=== PATIENT | female | born 1955 | race Caucasian/White ===

== ENCOUNTER 2023-06-19 17:43 | Observation (INO) | payer OTHER ==
--- OUTSIDE RECORDS SUMMARY | 2023-06-19 17:46 | XMS REPORT | Continuity of Care Document ---
Author Name Unknown Address [address] [facility] [place] [address] [facility] thconnect Address [address] [facility] [place] [address] Care Team Providers Care Director Of [employer] Name Role Phone Sandra Lind Attending Clinician Unavailable Problems Condition Name Condition Details Condition Category Status Onset Date Resolution Date Last Treatment Date Treating Clinician Comments Source [id number] Mixed hyperlipid emia Problem [facility] [id number] Essential (primary) hypertensi on Problem [facility] [id number] LBBB (left bundle branch block) Problem [facility] Long-term current use of antithromb otic senior care (current) use of antithromb otics/anti platelets Problem [facility] [id number] Urinary incontinen ce in female Problem Common [facility] Chronic systolic heart failure Systolic CHF, chronic Problem [facility] [id number] Type 2 diabetes mellitus with hyperglyce joyce Problem [facility] Allergic rhinitis Non-season al allergic rhinitis, unspecifie d trigger Problem [facility] [id number] Chronic GERD Problem [facility] [id number] Coronary angioplast y status Problem [facility] 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 Problem [facility] Hypertensi ve heart failure Hypertensi ve heart disease with heart failure Problem [facility] [id number] 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 Ordering Clinician Indication Dosage Frequency Signature (SIG) Comments Components Source Famotidine 40 MG Famotidine 40 MG No 1{table t_at_be dtime} QD Famotidine 40 MG Metoprolol Succinate ER 25 MG Metoprolol Succinate ER 25 MG No 1{table t} QD Metoprolol Succinate ER 25 MG oxyBUTYnin Chloride ER 15 MG oxyBUTYnin Chloride ER 15 MG No 1{table t} QD oxyBUTYnin Chloride ER 15 MG Toujeo SoloStar 300 UNIT/ML Toujeo SoloStar 300 UNIT/ML No QD Toujeo SoloStar 300 UNIT/ML Repatha SureClick 140 MG/ML Repatha SureClick 140 MG/ML No Repatha SureClick 140 MG/ML Losartan Potassium 50 MG Losartan Potassium 50 MG No 1{table t} QD Losartan Potassium 50 MG Vitamin D3 Vitamin D3 No Vitamin D3 Womens Multivitami n - Womens Multivitami n - No Womens Multivitam in - Ezetimibe 10 MG Ezetimibe 10 MG No 1{table t} QD Ezetimibe 10 MG Promethazin e HCl 25 MG Promethazin e HCl 25 MG No 1{table t_as_ne eded} BID Promethazi ne HCl 25 MG Fluticasone Propionate 50 MCG/ACT Fluticasone Propionate 50 MCG/ACT No 1{spray _in_eac h_nostr il} QD Fluticason e Propionate 50 MCG/ACT Vitamin C Vitamin C No Vitamin C Ozempic (2 MG/DOSE) 8 MG/3ML Ozempic (2 MG/DOSE) 8 MG/3ML No Ozempic (2 MG/DOSE) 8 MG/3ML Sambucus Elderberry Immune - Sambucus Elderberry Immune - No Sambucus Elderberry Immune - Nitroglycer in 0.4 MG Nitroglycer in 0.4 MG No Nitroglyce rin 0.4 MG Clopidogrel Bisulfate 75 MG Clopidogrel Bisulfate 75 MG No 1{table t} QD Clopidogre l Bisulfate 75 MG Atorvastati n Calcium 80 MG Atorvastati n Calcium 80 MG No 1{table t} QD Atorvastat in Calcium 80 MG Almebex Plus B-12 Almebex Plus B-12 No Almebex Plus B-12 Aspirin 81 MG Aspirin 81 MG No 1{table t} QD Aspirin 81 MG Toujeo SoloStar 300 UNIT/ML Toujeo SoloStar 300 UNIT/ML No Toujeo SoloStar 300 UNIT/ML Famotidine 40 MG Famotidine 40 MG No 1{table t_at_be dtime} QD Famotidine 40 MG Metoprolol Succinate ER 25 MG Metoprolol Succinate ER 25 MG No 1{table t} QD Metoprolol Succinate ER 25 MG oxyBUTYnin Chloride ER 15 MG oxyBUTYnin Chloride ER 15 MG No 1{table t} QD oxyBUTYnin Chloride ER 15 MG Toujeo SoloStar 300 UNIT/ML Toujeo SoloStar 300 UNIT/ML No QD Toujeo SoloStar 300 UNIT/ML Repatha SureClick 140 MG/ML Repatha SureClick 140 MG/ML No Repatha SureClick 140 MG/ML Losartan Potassium 50 MG Losartan Potassium 50 MG No 1{table t} QD Losartan Potassium 50 MG Vitamin D3 Vitamin D3 No Vitamin D3 Womens Multivitami n - Womens Multivitami n - No Womens Multivitam in - Ezetimibe 10 MG Ezetimibe 10 MG No 1{table t} QD Ezetimibe 10 MG Promethazin e HCl 25 MG Promethazin e HCl 25 MG No 1{table t_as_ne eded} BID Promethazi ne HCl 25 MG Fluticasone Propionate 50 MCG/ACT Fluticasone Propionate 50 MCG/ACT No 1{spray _in_eac h_nostr il} QD Fluticason e Propionate 50 MCG/ACT Vitamin C Vitamin C No Vitamin C Ozempic (2 MG/DOSE) 8 MG/3ML Ozempic (2 MG/DOSE) 8 MG/3ML No Ozempic (2 MG/DOSE) 8 MG/3ML Sambucus Elderberry Immune - Sambucus Elderberry Immune - No Sambucus Elderberry Immune - Nitroglycer in 0.4 MG Nitroglycer in 0.4 MG No Nitroglyce rin 0.4 MG Clopidogrel Bisulfate 75 MG Clopidogrel Bisulfate 75 MG No 1{table t} QD Clopidogre l Bisulfate 75 MG Atorvastati n Calcium 80 MG Atorvastati n Calcium 80 MG No 1{table t} QD Atorvastat in Calcium 80 MG Almebex Plus B-12 Almebex Plus B-12 No Almebex Plus B-12 Aspirin 81 MG Aspirin 81 MG No 1{table t} QD Aspirin 81 MG Toujeo SoloStar 300 UNIT/ML Toujeo SoloStar 300 UNIT/ML No Toujeo SoloStar 300 UNIT/ML Famotidine 40 MG Famotidine 40 MG No 1{table t_at_be dtime} QD Famotidine 40 MG Metoprolol Succinate ER 25 MG Metoprolol Succinate ER 25 MG No 1{table t} QD Metoprolol Succinate ER 25 MG oxyBUTYnin Chloride ER 15 MG oxyBUTYnin Chloride ER 15 MG No 1{table t} QD oxyBUTYnin Chloride ER 15 MG Toujeo SoloStar 300 UNIT/ML Toujeo SoloStar 300 UNIT/ML No QD Toujeo SoloStar 300 UNIT/ML Repatha SureClick 140 MG/ML Repatha SureClick 140 MG/ML No Repatha SureClick 140 MG/ML Losartan Potassium 50 MG Losartan Potassium 50 MG No 1{table t} QD Losartan Potassium 50 MG Vitamin D3 Vitamin D3 No Vitamin D3 Womens Multivitami n - Womens Multivitami n - No Womens Multivitam in - Sambucus Elderberry Immune - Sambucus Elderberry Immune - No Sambucus Elderberry Immune - Metoprolol Succinate ER 25 MG Metoprolol Succinate ER 25 MG No 1{table t} QD Metoprolol Succinate ER 25 MG Womens Multivitami n - Womens Multivitami n - No Womens Multivitam in - Losartan Potassium 50 MG Losartan Potassium 50 MG No 1{table t} QD Losartan Potassium 50 MG Ezetimibe 10 MG Ezetimibe 10 MG No 1{table t} QD Ezetimibe 10 MG Famotidine 40 MG Famotidine 40 MG No 1{table t_at_be dtime} QD Famotidine 40 MG Promethazin e HCl 25 MG Promethazin e HCl 25 MG No 1{table t_as_ne eded} BID Promethazi ne HCl 25 MG Fluticasone Propionate 50 MCG/ACT Fluticasone Propionate 50 MCG/ACT No 1{spray _in_eac h_nostr il} QD Fluticason e Propionate 50 MCG/ACT Nitroglycer in 0.4 MG Nitroglycer in 0.4 MG No Nitroglyce rin 0.4 MG Atorvastati n Calcium 80 MG Atorvastati n Calcium 80 MG No 1{table t} QD Atorvastat in Calcium 80 MG Clopidogrel Bisulfate 75 MG Clopidogrel Bisulfate 75 MG No 1{table t} QD Clopidogre l Bisulfate 75 MG Vitamin D3 Vitamin D3 No Vitamin D3 Toujeo SoloStar 300 UNIT/ML Toujeo SoloStar 300 UNIT/ML No Toujeo SoloStar 300 UNIT/ML Toujeo SoloStar 300 UNIT/ML Toujeo SoloStar 300 UNIT/ML No QD Toujeo SoloStar 300 UNIT/ML Aspirin 81 MG Aspirin 81 MG No 1{table t} QD Aspirin 81 MG Vitamin C Vitamin C No Vitamin C Repatha SureClick 140 MG/ML Repatha SureClick 140 MG/ML No Repatha SureClick 140 MG/ML Ozempic (2 MG/DOSE) 8 MG/3ML Ozempic (2 MG/DOSE) 8 MG/3ML No Ozempic (2 MG/DOSE) 8 MG/3ML oxyBUTYnin Chloride ER 15 MG oxyBUTYnin Chloride ER 15 MG No 1{table t} QD oxyBUTYnin Chloride ER 15 MG Almebex Plus B-12 Almebex Plus B-12 No Almebex Plus B-12 Ezetimibe 10 MG Ezetimibe 10 MG No 1{table t} QD Ezetimibe 10 MG Promethazin e HCl 25 MG Promethazin e HCl 25 MG No 1{table t_as_ne eded} BID Promethazi ne HCl 25 MG Fluticasone Propionate 50 MCG/ACT Fluticasone Propionate 50 MCG/ACT No 1{spray _in_eac h_nostr il} QD Fluticason e Propionate 50 MCG/ACT Vitamin C Vitamin C No Vitamin C Ozempic (2 MG/DOSE) 8 MG/3ML Ozempic (2 MG/DOSE) 8 MG/3ML No Ozempic (2 MG/DOSE) 8 MG/3ML Sambucus Elderberry Immune - Sambucus Elderberry Immune - No Sambucus Elderberry Immune - Nitroglycer in 0.4 MG Nitroglycer in 0.4 MG No Nitroglyce rin 0.4 MG Clopidogrel Bisulfate 75 MG Clopidogrel Bisulfate 75 MG No 1{table t} QD Clopidogre l Bisulfate 75 MG Atorvastati n Calcium 80 MG Atorvastati n Calcium 80 MG No 1{table t} QD Atorvastat in Calcium 80 MG Almebex Plus B-12 Almebex Plus B-12 No Almebex Plus B-12 Aspirin 81 MG Aspirin 81 MG No 1{table t} QD Aspirin 81 MG Toujeo SoloStar 300 UNIT/ML Toujeo SoloStar 300 UNIT/ML No Toujeo SoloStar 300 UNIT/ML Immunizations Ordered Immunization Name Filled Immunization Name Date Status Comments Source FLUZONE HIGH DOSE OVER 65 FLUZONE HIGH DOSE OVER 65 Unknown Completed [facility] TDAP TDAP Unknown Completed [facility] FLUZONE HIGH DOSE OVER 65 FLUZONE HIGH DOSE OVER 65 Unknown Completed [facility] TDAP TDAP Unknown Completed [facility] FLUZONE HIGH DOSE OVER 65 FLUZONE HIGH DOSE OVER 65 Unknown Completed [facility] TDAP TDAP Unknown Completed [facility] FLUZONE HIGH DOSE OVER 65 FLUZONE HIGH DOSE OVER 65 Unknown Completed [facility] TDAP TDAP Unknown Completed [facility] Vital Signs Vital Name Observation Time Observation Value Comments S germaince height 2023-02-05 10:20:00 62.5 [in_i] Comm on [facility] weight 2023-02-05 10:20:00 155 [lb_av] Comm on [facility] temperature 2023-02-05 10:20:00 97 [degF] Comm on [facility] bmi 2023-02-05 10:20:00 27.9 kg/m2 Commo n [facility] height 2022-12-19 11:00:00 62.5 [in_i] Comm on [facility] weight 2022-12-19 11:00:00 167.5 [lb_av] Co mmon [facility] temperature 2022-12-19 11:00:00 97.3 [degF] Com mon [facility] bmi 2022-12-19 11:00:00 30.14 kg/m2 Comm on [facility] oximetry 2022-12-19 11:00:00 99 % Commo n [facility] respiratory rate 2022-12-19 11:00:00 16 /min [facility] blood pressure systolic 2022-12-19 11:00:00 122 mm[Hg] [facility] blood pressure diastolic 2022-12-19 11:00:00 68 mm[Hg] [facility] Encounters Start Date/Time End Date/Time Encounter Type Admission Type Attending Clinicians Care Facility Care Department Encounter ID Source 2023-05-07 08:26:00 Outpatient Sandra Lind [facility] [id number] [facility] 2022-12-19 10:22:01 Outpatient LindSandra [facility] [id number] [facility] 2023-02-22 00:00:00 2023-02-22 00:00:00 (TEL) [facility] [id number] [facility] 2023-02-05 00:00:00 2023-02-05 00:00:00 OFFICE VISIT ESTAB PT LEVEL 4 [facility] [id number] [facility] 2023-01-03 00:00:00 2023-01-03 00:00:00 (TEL) [facility]C [facility] [id number] [facility] 2022-12-19 00:00:00 2022-12-19 00:00:00 OFFICE VISIT NEW PT LEVEL 4 [facility] [id number] [facility] Results Test Description Test Time Test Comments Results Result Co mments Source HEMOGLOBIN [id number] 00:00:00* Test Item Value Reference Range Interpretation Comme nts HEMOGLOBIN A1c (test code = 4548-4) 5.8 % See_Comment H [Automated messa ge] The system which generated this result transmitted reference range: 4.2-5.6 %. The reference range was not used to interpret this result as normal/abnormal. LIPID PANEL WITH REFLEX DIRECT [id number] 00:00:00* Test Item Value Reference Range Interpretation Comme nts CALC LDL CHOL (test code = 29125-2) 31 MG/DL See_Comment [Automated IQcarda ge] The system which generated this result transmitted reference range: <100 MG/DL. The reference range was not used to interpret this result as normal/abnormal. CHOLESTEROL (test code = 2093-3) 98 MG/DL See_Comment [Automated IQcarda ge] The system which generated this result transmitted reference range: <200 MG/DL. The reference range was not used to interpret this result as normal/abnormal. HDL CHOLESTEROL (test code = 2085-9) 51 MG/DL See_Comment [Automated IQcarda ge] The system which generated this result transmitted reference range: >39 MG/DL. The reference range was not used to interpret this result as normal/abnormal. RISK RATIO LDL/HDL (test code = 15714-2) 0.61 RATIO See_Comment [Automated message] The system which generated this result transmitted reference range: <3.22 RATIO. The reference range was not used to interpret this result as normal/abnormal. TRIGLYCERIDES (test code = 2571-8) 79 MG/DL See_Comment [Automated IQcarda ge] The system which generated this result transmitted reference range: <150 MG/DL. The reference range was not used to interpret this result as normal/abnormal. ALBUMIN/CREATININE RATIO, RANDOM [id number] 00:00:00* Test Item Value Reference Range Interpretation Comme nts ALBUMIN, URINE, RANDOM (test code = 49426-9) 1.3 MG/DL NOT ESTAB MG/DL CALC ALBUMIN/CREAT, RND (test code = 76535-6) 10 MG/G See_Comment [Automated messa ge] The system which generated this result transmitted reference range: <30 MG/G. The reference range was not used to interpret this result as normal/abnormal. CREATININE, URINE, CONC. (test code = 2161-8) 131.1 MG/DL NOT ESTAB MG/DL COMPREHENSIVE METABOLIC [id number] 00:00:00* Test Item Value Reference Range Interpretation Comme nts ALBUMIN (test code = 1751-7) 4.4 G/DL See_Comment [Automated messa ge] The system which generated this result transmitted reference range: 3.5-5.2 G/DL. The reference range was not used to interpret this result as normal/abnormal. ALKALINE PHOSPHATASE (test code = 6768-6) 93 U/L See_Comment [Automated message] The system which generated this result transmitted reference range: 40-142 U/L. The reference range was not used to interpret this result as normal/abnormal. BILIRUBIN, TOTAL (test code = 1975-2) 0.9 MG/DL See_Comment [Automated message] The system which generated this result transmitted reference range: <=1.2 MG/DL. The reference range was not used to interpret this result as normal/abnormal. BUN (test code = 3094-0) 19 MG/DL See_Comment [Automated messa ge] The system which generated this result transmitted reference range: 8-23 MG/DL. The reference range was not used to interpret this result as normal/abnormal. CALCIUM (test code = 22489-6) 9.6 MG/DL See_Comment [Automated messa ge] The system which generated this result transmitted reference range: 8.5-10.5 MG/DL. The reference range was not used to interpret this result as normal/abnormal. CALC A/G RATIO (test code = 1759-0) 1.6 RATIO See_Comment [Automated messa ge] The system which generated this result transmitted reference range: 1.0-2.6 RATIO. The reference range was not used to interpret this result as normal/abnormal. CALC BUN/CREAT (test code = 3097-3) 29 RATIO See_Comment H [Automated messa ge] The system which generated this result transmitted reference range: 6-28 RATIO. The reference range was not used to interpret this result as normal/abnormal. CALC GLOBULIN (test code = 71021-0) 2.7 G/DL See_Comment [Automated messa ge] The system which generated this result transmitted reference range: 1.9-3.7 G/DL. The reference range was not used to interpret this result as normal/abnormal. CARBON DIOXIDE (test code = 1963-8) 23 MEQ/L See_Comment [Automated messa ge] The system which generated this result transmitted reference range: 19-31 MEQ/L. The reference range was not used to interpret this result as normal/abnormal. CHLORIDE (test code = 2075-0) 105 MEQ/L See_Comment [Automated messa ge] The system which generated this result transmitted reference range: 95-107 MEQ/L. The reference range was not used to interpret this result as normal/abnormal. CREATININE (test code = 2160-0) 0.65 MG/DL See_Comment [Automated messa ge] The system which generated this result transmitted reference range: 0.60-1.30 MG/DL. The reference range was not used to interpret this result as normal/abnormal. eGFR (2020 CKD-EPI) (test code = 40458-5) 95 ML/MIN/1.73 See_Comment [Automated messa ge] The system which generated this result transmitted reference range: >60 ML/MIN/1.73. The reference range was not used to interpret this result as normal/abnormal. GLUCOSE (test code = 1558-6) 100 MG/DL See_Comment H [Automated messa ge] The system which generated this result transmitted reference range: 70-99 MG/DL. The reference range was not used to interpret this result as normal/abnormal. POTASSIUM (test code = 2823-3) 4.3 MEQ/L See_Comment [Automated messa ge] The system which generated this result transmitted reference range: 3.5-5.4 MEQ/L. The reference range was not used to interpret this result as normal/abnormal. PROTEIN, TOTAL (test code = 2885-2) 7.1 G/DL See_Comment [Automated messa ge] The system which generated this result transmitted reference range: 6.1-8.3 G/DL. The reference range was not used to interpret this result as normal/abnormal. AST (test code = 1920-8) 27 U/L See_Comment [Automated messa ge] The system which generated this result transmitted reference range: 9-40 U/L. The reference range was not used to interpret this result as normal/abnormal. ALT (test code = 1742-6) 25 U/L See_Comment [Automated messa ge] The system which generated this result transmitted reference range: 5-40 U/L. The reference range was not used to interpret this result as normal/abnormal. SODIUM (test code = 2951-2) 140 MEQ/L See_Comment [Automated messa ge] The system which generated this result transmitted reference range: 133-146 MEQ/L. The reference range was not used to interpret this result as normal/abnormal. CBC W/AUTO [id number] 00:00:00* Test Item Value Reference Range Interpretation Comme nts NUCLEATED RBCS (test code = 38479-1) 0.0 /100 WBC'S See_Comment [Automated messa ge] The system which generated this result transmitted reference range: 0.0 /100 WBC'S. The reference range was not used to interpret this result as normal/abnormal. ABSOLUTE EOSINOPHILS (test code = 80938-4) 0.25 K/UL See_Comment [Automated messa ge] The system which generated this result transmitted reference range: 0.00-0.50 K/UL. The reference range was not used to interpret this result as normal/abnormal. ABSOLUTE LYMPHOCYTES (test code = 26001-8) 1.35 K/UL See_Comment [Automated messa ge] The system which generated this result transmitted reference range: 1.00-4.00 K/UL. The reference range was not used to interpret this result as normal/abnormal. ABSOLUTE MONOCYTES (test code = 42699-3) 0.49 K/UL See_Comment [Automated messa ge] The system which generated this result transmitted reference range: 0.20-1.00 K/UL. The reference range was not used to interpret this result as normal/abnormal. ABSOLUTE NEUTROPHILS (test code = 91781-5) 5.94 K/UL See_Comment [Automated messa ge] The system which generated this result transmitted reference range: 1.50-7.50 K/UL. The reference range was not used to interpret this result as normal/abnormal. BASOPHILS (test code = 25925-7) 0.9 % EOSINOPHILS (test code = 69005-2) 3.1 % HEMATOCRIT (test code = 32797-4) 38.2 % See_Comment [Automated messa ge] The system which generated this result transmitted reference range: 34.0-45.0 %. The reference range was not used to interpret this result as normal/abnormal. HEMOGLOBIN (test code = 718-7) 13.1 G/DL See_Comment [Automated messa ge] The system which generated this result transmitted reference range: 11.5-15.5 G/DL. The reference range was not used to interpret this result as normal/abnormal. LYMPHOCYTES (test code = 85299-3) 16.6 % MCH (test code = 88785-1) 31.6 PG See_Comment [Automated messa ge] The system which generated this result transmitted reference range: 25.0-33.0 PG. The reference range was not used to interpret this result as normal/abnormal. MCHC (test code = 97303-6) 34.3 G/DL See_Comment [Automated messa ge] The system which generated this result transmitted reference range: 31.0-36.0 G/DL. The reference range was not used to interpret this result as normal/abnormal. MCV (test code = 48700-5) 92.0 fL See_Comment [Automated messa ge] The system which generated this result transmitted reference range: 80.0-99.0 fL. The reference range was not used to interpret this result as normal/abnormal. MONOCYTES (test code = 56103-1) 6.0 % NEUTROPHILS (test code = 15052-8) 73.3 % PLATELET COUNT (test code = 93053-3) 295 K/UL See_Comment [Automated messa ge] The system which generated this result transmitted reference range: 130-400 K/UL. The reference range was not used to interpret this result as normal/abnormal. RBC (test code = 39191-3) 4.15 M/UL See_Comment [Automated messa ge] The system which generated this result transmitted reference range: 3.80-5.40 M/UL. The reference range was not used to interpret this result as normal/abnormal. RDW (test code = 12039-3) 11.9 % See_Comment [Automated messa ge] The system which generated this result transmitted reference range: 11.5-15.0 %. The reference range was not used to interpret this result as normal/abnormal. WBC (test code = 32356-3) 8.1 K/UL See_Comment [Automated messa ge] The system which generated this result transmitted reference range: 3.5-11.0 K/UL. The reference range was not used to interpret this result as normal/abnormal. HEMOGLOBIN [id number] 00:00:00* Test Item Value Reference Range [facility]ation [facility] A1c (test code = 4548-4) 5.8 % See_Comment H [Automated IQcarda ge] The system which generated this result transmitted reference range: 4.2-5.6 %. The reference range was not used to interpret this result as normal/abnormal. TSH REFLEX TO FREE [id number] 00:00:00* Test Item Value Reference Range Interpretation [facility] TSH REFLEX TO FREE T4 (test code = 81914-8) 1.820 UIU/ML See_Comment [Automated IQcarda ge] The system which generated this result transmitted reference range: 0.400-4.100 UIU/ML. The reference range was not used to interpret this result as normal/abnormal. LIPID PANEL WITH REFLEX DIRECT [id number] 00:00:00* Test Item Value Reference Range Interpretation [facility] CALC LDL CHOL (test code = 94444-4) 34 MG/DL See_Comment [Automated IQcarda ge] The system which generated this result transmitted reference range: <100 MG/DL. The reference range was not used to interpret this result as normal/abnormal. CHOLESTEROL (test code = 2093-3) 95 MG/DL See_Comment [Automated IQcarda ge] The system which generated this result transmitted reference range: <200 MG/DL. The reference range was not used to interpret this result as normal/abnormal. HDL CHOLESTEROL (test code = 2085-9) 46 MG/DL See_Comment [Automated IQcarda ge] The system which generated this result transmitted reference range: >39 MG/DL. The reference range was not used to interpret this result as normal/abnormal. RISK RATIO LDL/HDL (test code = 25324-4) 0.74 RATIO See_Comment [Automated message] The system which generated this result transmitted reference range: <3.22 RATIO. The reference range was not used to interpret this result as normal/abnormal. TRIGLYCERIDES (test code = 2571-8) 74 MG/DL See_Comment [Automated messa ge] The system which generated this result transmitted reference range: <150 MG/DL. The reference range was not used to interpret this result as normal/abnormal. ALBUMIN/CREATININE RATIO, RANDOM [id number] 00:00:00* Test Item Value Reference Range Interpretation Comme nts ALBUMIN, URINE, RANDOM (test code = 35451-5) 1.1 MG/DL NOT ESTAB MG/DL CALC ALBUMIN/CREAT, RND (test code = 42067-0) 10 MG/G See_Comment [Automated messa ge] The system which generated this result transmitted reference range: <30 MG/G. The reference range was not used to interpret this result as normal/abnormal. CREATININE, URINE, CONC. (test code = 2161-8) 110.5 MG/DL NOT ESTAB MG/DL COMPREHENSIVE METABOLIC [id number] 00:00:00* Test Item Value Reference Range Interpretation Comme nts ALBUMIN (test code = 1751-7) 4.5 G/DL See_Comment [Automated messa ge] The system which generated this result transmitted reference range: 3.5-5.2 G/DL. The reference range was not used to interpret this result as normal/abnormal. ALKALINE PHOSPHATASE (test code = 6768-6) 102 U/L See_Comment [Automated message] The system which generated this result transmitted reference range: 40-142 U/L. The reference range was not used to interpret this result as normal/abnormal. BILIRUBIN, TOTAL (test code = 1975-2) 0.8 MG/DL See_Comment [Automated message] The system which generated this result transmitted reference range: <=1.2 MG/DL. The reference range was not used to interpret this result as normal/abnormal. BUN (test code = 3094-0) 21 MG/DL See_Comment [Automated messa ge] The system which generated this result transmitted reference range: 8-23 MG/DL. The reference range was not used to interpret this result as normal/abnormal. CALCIUM (test code = 75555-3) 9.6 MG/DL See_Comment [Automated messa ge] The system which generated this result transmitted reference range: 8.5-10.5 MG/DL. The reference range was not used to interpret this result as normal/abnormal. CALC A/G RATIO (test code = 1759-0) 1.7 RATIO See_Comment [Automated messa ge] The system which generated this result transmitted reference range: 1.0-2.6 RATIO. The reference range was not used to interpret this result as normal/abnormal. CALC BUN/CREAT (test code = 3097-3) 28 RATIO See_Comment [Automated messa ge] The system which generated this result transmitted reference range: 6-28 RATIO. The reference range was not used to interpret this result as normal/abnormal. CALC GLOBULIN (test code = 02620-0) 2.6 G/DL See_Comment [Automated messa ge] The system which generated this result transmitted reference range: 1.9-3.7 G/DL. The reference range was not used to interpret this result as normal/abnormal. CARBON DIOXIDE (test code = 1963-8) 20 MEQ/L See_Comment [Automated messa ge] The system which generated this result transmitted reference range: 19-31 MEQ/L. The reference range was not used to interpret this result as normal/abnormal. CHLORIDE (test code = 2075-0) 108 MEQ/L See_Comment H [Automated messa ge] The system which generated this result transmitted reference range: 95-107 MEQ/L. The reference range was not used to interpret this result as normal/abnormal. CREATININE (test code = 2160-0) 0.75 MG/DL See_Comment [Automated messa ge] The system which generated this result transmitted reference range: 0.60-1.30 MG/DL. The reference range was not used to interpret this result as normal/abnormal. eGFR (2020 CKD-EPI) (test code = 03991-0) 86 ML/MIN/1.73 See_Comment [Automated messa ge] The system which generated this result transmitted reference range: >60 ML/MIN/1.73. The reference range was not used to interpret this result as normal/abnormal. GLUCOSE (test code = 1558-6) 120 MG/DL See_Comment H [Automated messa ge] The system which generated this result transmitted reference range: 70-99 MG/DL. The reference range was not used to interpret this result as normal/abnormal. POTASSIUM (test code = 2823-3) 4.5 MEQ/L See_Comment [Automated messa ge] The system which generated this result transmitted reference range: 3.5-5.4 MEQ/L. The reference range was not used to interpret this result as normal/abnormal. PROTEIN, TOTAL (test code = 2885-2) 7.1 G/DL See_Comment [Automated messa ge] The system which generated this result transmitted reference range: 6.1-8.3 G/DL. The reference range was not used to interpret this result as normal/abnormal. AST (test code = 1920-8) 30 U/L See_Comment [Automated messa ge] The system which generated this result transmitted reference range: 9-40 U/L. The reference range was not used to interpret this result as normal/abnormal. ALT (test code = 1742-6) 30 U/L See_Comment [Automated messa ge] The system which generated this result transmitted reference range: 5-40 U/L. The reference range was not used to interpret this result as normal/abnormal. SODIUM (test code = 2951-2) 140 MEQ/L See_Comment [Automated messa ge] The system which generated this result transmitted reference range: 133-146 MEQ/L. The reference range was not used to interpret this result as normal/abnormal. DEXA, BONE DENSITY AXIAL SKELEDEXA, BONE DENSITY AXIAL SKELE
[2023-06-19 19:00] LABS: Specific Gravity 1.016 (1.005-1.030); Urine Bacteria <20 /HPF (<20); Urine Bilirubin NEGATIVE (Negative); Urine Blood Negative (Negative); Urine Clarity Extremely Turbid (Clear); Urine Color Light-Yellow (Yellow); Urine Crystals Unidentified Few /HPF (None Seen); Urine Glucose NEGATIVE (Negative); Urine Protein NEGATIVE (Negative); Urine RBC <5 /HPF (None Seen); Urine Urobilinogen Normal (Normal); Urine WBC Clump Occasional /HPF (None Seen); Urine pH 6.5 (5.0-7.0)
[2023-06-19] MEDS ORDERED: CEFTRIAXONE 1000 MG/VIAL ONE (19:09)
[2023-06-19 19:14] LABS: Absolute Lymphocytes (CBC) 2.5 K/uL (0.7-4.9); Hematocrit 41.4 % (36.0-45.0); Lymphocytes % 32.1 % (15.3-44.8); MCV 92.9 fL (80-100); MPV 7.4 fL (7.6-11.3); Platelets 268 thou/uL (152-406); RBC Red Blood Cell Count 4.46 M/uL (3.86-4.86)
[2023-06-19 19:29] LABS: Albumin 3.9 g/dL (3.4-5.0); Bilirubin Total 0.6 mg/dL (0.2-1.0); Potassium 4.2 mEq/L (3.5-5.1); Troponin High Sensitivity 8.8 pg/mL (<58.9)
--- NOTE | 2023-06-19 20:06 | RAD REPORT ---
EXAM DESCRIPTION: CT - Head Brain Wo Cont - 06/19/2023 7:55 pm CLINICAL HISTORY: DIZZINESS COMPARISON: Head angio dated 06/19/2023 TECHNIQUE: All CT scans are performed using dose optimization technique as appropriate and may inclu de automated exposure control or mA/KV adjustment according to patient size. FINDINGS: No intracranial hemorrhage, hydrocephalus or extra-axial fluid collection.No areas of brai n edema or evidence of midline shift. Partially empty sella, typically a normal variant. The paranasal sinuses and mastoids are clear. The calvarium is intact. IMPRESSION: No acute intracranial abnormality.
--- NOTE | 2023-06-19 20:10 | RAD REPORT ---
EXAM DESCRIPTION: CT - Neck Angio - 06/19/2023 7:57 pm CLINICAL HISTORY: dizzines COMPARISON: No comparisons TECHNIQUE: CT angiography of the neck vessels was performed with maximum intensity reformatted image s. CAROTID STENOSIS REFERENCE USING NASCET CRITERIA: Mild - <50% stenosis. Moderate - 50-69% stenosis. Severe - 70-94% stenosis. Near occlusion - 95-99% stenosis. Occluded - 100% stenosis. All CT scans are performed using dose optimization technique as appropriate and may include automated exposure control or mA/KV adjustment according to patient size. FINDINGS: A left aortic arch is identified with normal three vessel configuration of the great vesse ls. No significant flow abnormality is seen of the common carotid bilaterally. No significant stenosis is identified involving the cervical segments of both internal carotid arteri es. Normal flow is seen within both vertebral arteries. A left-sided thyroid nodule measuring 19 millimeters is noted. There is also likely a second either e xophytic thyroid nodule versus adjacent lymph node measuring 16 millimeters . IMPRESSION: No significant flow abnormality of the neck vessels is identified. Left thyroid nodule measuring 19 mm and either second exophytic nodule or enlarged lymph node. Recomm end thyroid ultrasound for further evaluation.
--- NOTE | 2023-06-19 20:13 | RAD REPORT ---
EXAM DESCRIPTION: CT - Head angio - 06/19/2023 7:57 pm CLINICAL HISTORY: DIZZINESS COMPARISON: No comparisons TECHNIQUE: CT angiography of the head was performed with maximum intensity reformatted images. 3D maximum intensity pixel (MIP) reconstructions were created All CT scans are performed using dose optimization technique as appropriate and may include automated exposure control or mA/KV adjustment according to patient size. FINDINGS: Anterior circulation: No aneurysm or large vessel occlusion. No hemodynamically significant stenosis. No arteriovenous malf ormation identified. Posterior circulation: Diminutive bilateral vertebral arteries and basilar artery. Bilateral origin of the posterior c erebral arteries. The diminutive basilar artery is presumably congenital/developmental. IMPRESSION: No significant flow abnormality is detected. Anatomic variants of bilateral origin of the posterior cerebral arteries with diminutive vertebral and basilar arteries.
--- NOTE | 2023-06-19 20:28 | ER ---
Nurse's Notes [facility] Name: Alphonse Berrios Age: 67 yrs Sex: Female : 1955 Arrival Date: 06/19/2023 Time: 17:43 Bed 8 Private MD: Diagnosis: Dizziness and giddiness;Diplopia Presentation: 06/19 17:54 Chief complaint: Patient states: Blurred and double vision, dizziness started three ll1 weeks ago. Went to [place] 06/19. CT scan negative, was told to get MRI. Dr. Lucia isn't back into town until 06/28, so office told her to come to ER. Coronavirus screen: Client denies travel out of the [place] in the last 14 days. At this time, the client does not indicate any symptoms associated with coronavirus-19. Ebola Screen: Patient denies travel to an Ebola-affected area in the 21 days before illness onset. Initial Sepsis Screen: Does the patient meet any 2 criteria? No. Patient's initial sepsis screen is negative. Does the patient have a suspected source of infection? No. Patient's initial sepsis screen is negative. Risk Assessment: Do you want to hurt yourself or someone else? Patient reports no desire to harm self or others. Onset of symptoms was May 29, 2023. 17:54 Method Of Arrival: Ambulatory ll1 17:54 Acuity: KRISTINA 3 ll1 Triage Assessment: 17:57 General: Appears uncomfortable, Behavior is calm, cooperative, appropriate for age. ll1 Pain: Denies pain. Neuro: Reports blurred vision dizziness. Cardiovascular: No deficits noted. Respiratory: No deficits noted. Historical: - Allergies: 17:58 Opioids - Morphine Analogues; ll1 17:58 tramadol; ll1 - PMHx: 17:56 Hypertensive disorder; Hypercholesterolemia; Diabetes mellitus; ll1 - PSHx: 17:56 3 heart stents; ll1 17:58 cataract repair B; Cholecystectomy; hysterectomy; ll1 - Immunization history:: Adult Immunizations up to date. - Social history:: Smoking status: Patient denies any tobacco usage or history of. Screenin:49 [facility] ED Fall Risk Assessment (Adult) History of falling in the last 3 months, ld1 including since admission No falls in past 3 months (0 pts). Abuse screen: Denies threats or abuse. Denies injuries from another. Nutritional screening: No deficits noted. Tuberculosis screening: No symptoms or risk factors identified. Assessment: 18:49 General: Appears in no apparent distress. comfortable, Behavior is cooperative, ld1 anxious. Pain: Denies pain. Neuro: Level of Consciousness is awake, alert, obeys commands, Oriented to person, place, time, situation. Neuro: Reports dizziness. Cardiovascular: Capillary refill < 3 seconds Patient's skin is warm and dry. Rhythm is sinus rhythm. Respiratory: Airway is patent Respiratory effort is even, unlabored. GI: Abdomen is round non-distended. : No signs and/or symptoms were reported regarding the genitourinary system. EENT: No signs and/or symptoms were reported regarding the EENT system. Derm: No signs and/or symptoms reported regarding the dermatologic system. Musculoskeletal: No signs and/or symptoms reported regarding the musculoskeletal system. 19:57 Reassessment: Patient appears in no apparent distress at this time. No changes from jw7 previously documented assessment. Patient and/or family updated on plan of care and expected duration. Pain level reassessed. Patient is alert, oriented x 3, equal unlabored respirations, skin warm/dry/pink. 21:00 Reassessment: Patient appears in no apparent distress at this time. No changes from bp previously documented assessment. Patient and/or family updated on plan of care and expected duration. Pain level reassessed. Patient is alert, oriented x 3, equal unlabored respirations, skin warm/dry/pink. 22:28 Reassessment: Patient appears in no apparent distress at this time. No changes from bp previously documented assessment. Patient and/or family updated on plan of care and expected duration. Pain level reassessed. Patient is alert, oriented x 3, equal unlabored respirations, skin warm/dry/pink. Vital Signs: 17:54 BP 172 / 82; Pulse 67; Resp 18; Temp 97.5; Pulse Ox 100% on R/A; Pain 0/10; ll1 18:49 BP 166 / 79; Pulse 71; Resp 25; Pulse Ox 97% on R/A; ld1 19:58 BP 143 / 65; Pulse 67; Resp 22 S; Pulse Ox 97% on R/A; jw7 21:15 BP 149 / 72; Pulse 63; Resp 16; Pulse Ox 97% ; bp 22:00 BP 136 / 72; Pulse 62; Resp 18 S; Pulse Ox 94% on R/A; bp 17:54 Pain Scale: Adult ll1 Visual Acuity: 18:49 Left Eye Visual acuity 20/20, ; Right Eye Visual acuity 20/25, ; Both Eyes Visual ld1 acuity 20/25; Without Lenses; ED Course: 17:45 Patient arrived in ED. mg5 17:51 Austin Fairchild MD is Attending Physician. ec2 17:56 Triage completed. ll1 17:57 Arm band placed on. ll1 18:49 Patient has correct armband on for positive identification. Placed in gown. Bed in low ld1 position. Call light in reach. Side rails up X2. electronic device monitor on. Pulse ox on. NIBP on. Door closed. Noise minimized. Warm blanket given. 18:49 No provider procedures requiring assistance completed. Missed attempt(s): 20 gauge in ld1 right antecubital area. 18:51 Lesley Castro, TASHA is Primary Nurse. ld1 18:51 CMP Sent. ld1 18:51 CBC with Diff Sent. ld1 18:51 UAM Sent. ld1 18:51 Troponin HS Sent. ld1 18:56 Inserted saline lock: 22 gauge in right forearm, using aseptic technique. Blood tl4 collected. 19:25 Provided Education on: ED process. tl4 19:56 CT Head Brain wo Cont In Process Unspecified. EDMS 19:59 CT Head Angio In Process Unspecified. EDMS 19:59 CT Neck Angio In Process Unspecified. EDMS 20:10 [facility]C [facility] ec2 20:27 Guilherme Alexis MD is Hospitalizing Provider. kb 22:29 Patient admitted, IV remains in place. bp Administered Medications: 19:24 Drug: Rocephin IV 1 grams IV at bolus once; Given slow IV push per pharmacy tl4 instructions Route: IV; Rate: bolus; Site: right wrist; Medication: 18:49 VIS not applicable for this client. ld1 Outcome: 20:27 Decision to Hospitalize by Provider. kb 21:00 Admitted to ER Hold. [facility]. bp 21:00 Condition: stable 21:00 Instructed on the need for admit, Demonstrated understanding of instructions, 06/20 15:49 Patient left the ED. ph Signatures: Dispatcher [employer] EDMaribeth Kapadia, ROB-Yuni RIVAS-Keely Barreto RN RN Tez Hermosillo RN RN bp Omar Ley RN RN ll1 Lesley Castro RN RN ld1 Amanda Robison RN RN jw7 Annette Forbes 5 Austin Fairchild MD MD ec2 Ruben Mednoza 4
--- NOTE | 2023-06-19 20:28 | EDPHYS ---
Physician Documentation [facility] Name: Alphonse Berrios Age: 67 yrs Sex: Female : 1955 Arrival Date: 06/19/2023 Time: 17:43 Bed 8 Private MD: ED Physician Austin Fairchild HPI: 06/19 17:59 This 67 yrs old Female presents to ER via Ambulatory with complaints of ec2 vision issues. 17:59 Patient arrives today due to concern for diplopia. Patient reports that she has been ec2 having 1 month of symptoms. States that she has seen her machine setter multiple times and told that she had no ocular pathology. Patient reports no headaches, no issues with chest pain or difficulty breathing. Patient reports that she occasionally has some instability in her feet initially with therapy. Reports history of diabetes, hypertension, hyperlipidemia. . Historical: - Allergies: 17:58 Opioids - Morphine Analogues; ll1 17:58 tramadol; ll1 - PMHx: 17:56 Hypertensive disorder; Hypercholesterolemia; Diabetes mellitus; ll1 - PSHx: 17:56 3 heart stents; ll1 17:58 cataract repair B; Cholecystectomy; hysterectomy; ll1 - Immunization history:: Adult Immunizations up to date. - Social history:: Smoking status: Patient denies any tobacco usage or history of. ROS: 17:59 Constitutional: as per hpi ec2 Exam: 17:59 Constitutional: GEN: NAD Head: atraumatic Eyes: EOMI Ears: External ears are ec2 normal. CV: regular rate LUNGS: no respiratory distress ABD: non-distended SKIN: no evidence of rashes MSK: no evidence of trauma NEURO: moves all extremities equally, cranial nerves II through XII intact, strength intact in all 4 extremities. Vital Signs: 17:54 BP 172 / 82; Pulse 67; Resp 18; Temp 97.5; Pulse Ox 100% on R/A; Pain 0/10; ll1 18:49 BP 166 / 79; Pulse 71; Resp 25; Pulse Ox 97% on R/A; ld1 19:58 BP 143 / 65; Pulse 67; Resp 22 S; Pulse Ox 97% on R/A; jw7 21:15 BP 149 / 72; Pulse 63; Resp 16; Pulse Ox 97% ; bp 22:00 BP 136 / 72; Pulse 62; Resp 18 S; Pulse Ox 94% on R/A; bp 17:54 Pain Scale: Adult ll1 Visual Acuity: 18:49 Left Eye Visual acuity 20/20, ; Right Eye Visual acuity 20/25, ; Both Eyes Visual ld1 acuity 20/25; Without Lenses; MDM: 17:58 Patient medically screened. ec2 18:00 Data reviewed: vital signs. ED course: Patient arrives today for evaluation of diplopia ec2 as well as issues with her gait. Examination remarkable for well-appearing nontoxic dividual is otherwise neuro intact with reassuring vital signs. Will obtain lab work, CT imaging. Ultimately patient is been having symptoms for at least 1 month, patient would benefit from inpatient hospitalization and MR imaging. Currently considering processes such as electrolyte disturbances, vascular pathology such as aneurysmal processes, stroke.. 18:39 ED course: EKG independently reviewed and interpreted by me, shows normal sinus rhythm, ec2 rate of 60, no acute ST segment elevations, intervals are nonconcerning, left bundle branch block noted.. 19:03 ED course: UA appears infectious, will treat with antibiotics.. ec2 20:03 ED course: CBC, CMP are reassuring. Troponin within normal ranges. . ec2 20:10 Transition of care: After a detail discussion of the patient's case, care is ec2 [facility] 20:27 Consideration of Admission/Observation Patient was admitted/placed on observation. kb Escalation of care including admission/observation considered. Management of patient was discussed with the following: Hospitalist: Dr Alexis accepts pt for admission. Counseling: I had a detailed discussion with the patient and/or guardian regarding the historical points, exam findings, and any diagnostic results supporting the discharge/admit diagnosis, lab results, radiology results, the need for further work-up and treatment in the hospital. 06/19 17:59 Order name: CBC with Diff; Complete Time: 20:03 ec2 06/19 17:59 Order name: CMP; Complete Time: 20:03 ec2 06/19 17:59 Order name: Troponin HS; Complete Time: 20:03 ec2 06/19 17:59 Order name: UAM; Complete Time: 19:03 ec2 06/19 19:05 Order name: Urine Culture EDMS 06/19 21:47 Order name: Lipid Profile EDMS 06/19 21:47 Order name: Lipid Profile EDRI 06/19 22:48 Order name: Glucose, Ancillary Testing; Complete Time: 23:26 EDRI 06/20 14:54 Order name: Glucose, Ancillary Testing EDRI 06/19 17:59 Order name: CT Head Brain wo Cont; Complete Time: 20:10 ec2 06/19 17:59 Order name: CT Head Angio; Complete Time: 20:16 ec2 06/19 17:59 Order name: CT Neck Angio; Complete Time: 20:16 ec2 06/19 21:47 Order name: Echo with Doppler EDRI 06/19 21:49 Order name: Brain Wo Cont EDRI 06/20 09:40 Order name: MRI EDRI 06/19 17:59 Order name: EKG; Complete Time: 18:00 ec2 06/19 21:47 Order name: IRF Screen EDRI 06/19 21:47 Order name: Physical Therapy Consult EDRI 06/19 21:47 Order name: Speech Therapy Consult EDRI 06/19 17:59 Order name: EKG - Nurse/Tech; Complete Time: 18:40 ec2 06/19 18:00 Order name: Visual Acuity; Complete Time: 18:51 ec2 Administered Medications: 19:24 Drug: Rocephin IV 1 grams IV at bolus once; Given slow IV push per pharmacy tl4 instructions Route: IV; Rate: bolus; Site: right wrist; Disposition Summary: 06/19/23 20:27 Hospitalization Ordered Notes: Hospitalization Status: Observation kb Provider: Guilherme Alexis Condition: Stable kb Problem: new kb Symptoms: are unchanged kb Bed/Room Type: Standard Location: Telemetry/MedSurg (Inpatient)(06/20/23 14:34[place] [facility] [place]: [facility](06/20/23 14:34) [facility] [place] Diagnosis - Dizziness and giddiness kb - Diplopia kb Forms: - Medication Reconciliation Form kb - SBAR form kb - Leadership Thank You Letter kb Signatures: Dispatcher [employer] [facility] Maribeth Amaya FNP-C FNP-Omar Coats, RN RN ll1 Tiara Diallo rv1 Enid Kunz 5 Austin Fairchild MD MD ec2 Ruben Mendoza tl4 Corrections: (The following items were deleted from the chart) 18:01 17:59 Patient arrives today due to concern for diplopia. Patient reports that she has ec2 been having 1 month of symptoms. States that she has seen her machine setter multiple times and told that she had no ocular pathology. Patient reports no headaches, no issues with chest pain or difficulty breathing. Patient reports that she occasionally has some instability in her feet initially with therapy. Reports history of diabetes, hypertension, hyperlipidemia. . ec2 : 20:27 Telemetry/MedSurg (observation) rv1 20:27 kb 1 06/20 14:34 06/19 20:58 [facility] 06/20 14:34 06/19 20:58 ERHOLD- rv1 mc5
[2023-06-19] MEDS ORDERED: ONDANSETRON 4 MG/2 ML VIAL IV PRN (21:41)
--- NOTE | 2023-06-19 21:54 | P.HP ---
Certification for Inpatient Patient admitted to: Observation Practitioner: I am a practitioner with admitting privileges, knowledge of patient current condition, hospital course, and medical plan of care. Services: Services provided to patient in accordance with Admission requirements found in Title 42 Section 412.3 of the Code of Federal Regulations Patient History Date of Service: 06/19/23 Reason for admission: Dizziness, diplopia History of Present Illness: 67-year-old female with history of multiple medical problems including type 2 diabetes mellitus, hypertension, hyperlipidemia, coronary artery disease Presented to the emergency department with complaints of dizziness, diplopia, unsteady gait Her symptoms initially started approximately 3 weeks back. As per the patient she went to an emergency department in [facility]. She was discharged after obtaining CT scan of the brain with recommendation to follow-up with her PCP and audio/video engineer. As per the patient she did follow-up with audio/video engineer and ENT. She was told that they could not find anything wrong with her. She returned to the ED today due to persistence of her symptoms including dizziness, diplopia, unsteady gait. Denies any trouble with speech, facial droop, tingling, numbness, weakness in the extremities Patient was initially evaluated in the ED CT scan of the brain without contrast, CTA head and neck were unremarkable Review of Systems General: Unremarkable Eyes: Vision Change ENT: Unremarkable Respiratory: Unremarkable Cardiovascular: Unremarkable Gastrointestinal: Unremarkable Genitourinary: Unremarkable Musculoskeletal: Unremarkable Integumentary: Unremarkable Neurological: As per HPI Physical Examination - Physical Exam General: Alert, Oriented x3 HEENT: Atraumatic, PERRLA Neck: Supple, JVD not distended Respiratory: Clear to auscultation bilaterally, Normal air movement Cardiovascular: No edema, Normal pulses Gastrointestinal: Normal bowel sounds, Soft and benign, Non-distended Musculoskeletal: No swelling, No erythema Integumentary: No rashes, No significant lesion Neurological: Normal gait, Normal speech, Normal strength at 5/5 x4 extr, Normal tone, Sensation intact - Studies Laboratory Data (last 24 hrs) 06/19/23 06/19/23 18:56 18:56 WBC 7.80 Hgb 14.0 Hct 41.4 Plt Count 268 Sodium 140 Potassium 4.2 BUN 13 Creatinine 0.71 Glucose 91 Total Bilirubin 0.6 AST 31 ALT 40 Alkaline Phosphatase 109 Assessment and Plan - Plan ASSESSMENT Dizziness, diplopia-rule out acute ischemic stroke Possible UTI Type 2 diabetes mellitus Hypertension Hyperlipidemia Coronary artery disease PLAN 67-year-old female with history of multiple medical problems presented to the emergency department with complaints of dizziness and diplopia of 3 weeks duration Patient initially presented to an outside emergency department 3 weeks back, had a CT scan of the brain done and discharged with recommendation to follow-up with audio/video engineer, PCP. As per the patient she did follow-up with an audio/video engineer, ENT and was told that they could not find anything wrong with her Will place the patient in observation Monitor on telemetry Neurochecks every [address] scan of the brain, CTA head and neck done in the ED were unremarkable Obtain MRI scan of the brain tomorrow Obtain 2D echocardiogram to finish stroke workup Restart aspirin 162 mg p.o. daily, Lipitor 40 mg p.o. daily UA suggestive of UTI even though clinically no evidence of urinary tract infection. Continue IV ceftriaxone for now. Follow-up urine cultures PT evaluation, speech therapy evaluation Obtain patient's home medications, review and reconcile when available Further management based on patient hospital course. Discussed treatment plan with the patient and answered all her questions. - Advance Directives Does patient have a Living Will: No Does patient have a Durable POA for Healthcare: No
[2023-06-19 23:39] VITALS: O2SAT 99; BMI 26.6
[2023-06-20] MEDS: INSULIN REGULAR (HUMAN) 100 UNIT/ML SQ SCH ×3 (07:30→15:59)
[2023-06-20] MEDS ORDERED: ENOXAPARIN 40 MG/0.4 ML SQ SCH (09:00)
[2023-06-20] MEDS ORDERED: ASPIRIN EC 81 MG TAB PO SCH (09:00)
[2023-06-20] MEDS ORDERED: INFLUENZA VACCINE (for 6+ mo) 0.5 ML DOSE IMVAC ONE (09:00)
[2023-06-20] MEDS ORDERED: CEFTRIAXONE 1,000 MG in NA CHLORIDE 0.9% 50 ML IVPB SCH (09:00)
--- NOTE | 2023-06-20 09:40 | RAD REPORT ---
EXAM DESCRIPTION: MRI - Brain Wo Cont - 06/20/2023 8:27 am CLINICAL HISTORY: Dizziness COMPARISON: Noncontrast head CT 06/19/2023 TECHNIQUE: Multiplanar multisequence MRI of the brain performed without IV contrast. FINDINGS: No evidence of acute infarct or other diffusion signal abnormality. No evidence of acute intracranial hemorrhage or abnormal extra-axial fluid collections. Ventricular caliber within normal for age. Midline structures are unremarkable. Scattered subcortical and deep white matter T2/FLAIR hyperintensities, nonspecific, but suggestive of chronic small vessel ischemic changes. No mass effect or midline shift. Major vascular flow voids are preserved. Mastoid air cells and paranasal sinuses are clear. IMPRESSION: No acute intracranial process. No evidence of ventriculomegaly or mass effect. Nonspecific deep white matter T2 hyperintensities, may suggest mild chronic small vessel ischemic yony nges.
[2023-06-20] MEDS ORDERED: CEFTRIAXONE 1000 MG/VIAL ONE (10:05)
[2023-06-20] MEDS ORDERED: ASPIRIN EC 81 MG TAB PO ONE (10:06)
[2023-06-20] MEDS ORDERED: NA CHLORIDE 0.9% 50 ML ONE (10:06)
[2023-06-20] MEDS ORDERED: ENOXAPARIN 40 MG/0.4 ML SQ ONE (10:06)
[2023-06-20 17:20] VITALS: BP 162/75; TEMP 97.6
--- NOTE | 2023-06-20 18:17 | P.DS ---
Admission Date: 06/19/23 Discharge Date: 06/20/23 Disposition: ROUTINE DISCHARGE Discharge Condition: FAIR Reason for Admission: Dizziness, diplopia - Problems (1) Dizziness Current Visit: Yes Status: Acute (2) CAD (coronary artery disease) Current Visit: Yes Status: Acute (3) Hypertension Current Visit: Yes Status: Acute (4) Type 2 diabetes mellitus Current Visit: Yes Status: Acute (5) Acute cystitis without hematuria Current Visit: Yes Status: Acute Brief History of Present Illness: 67-year-old female with history of multiple medical problems including type 2 diabetes mellitus, hypertension, hyperlipidemia, coronary artery disease presented to the emergency department with complaints of dizziness, diplopia, unsteady gait. Her symptoms initially started approximately 3 weeks back. She went to an emergency department in [facility], CT head was done which was negative. It was recommended she follow-up with her PCP and road design engineer. She reported she did follow-up with road design engineer and ENT. 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 She returned to the ED today due to persistence of her symptoms including dizziness, diplopia, unsteady gait. She denied any trouble with speech, facial droop, tingling, numbness, weakness in the extremities Patient was initially evaluated in the ED. CT scan of the brain without contrast, CTA head and neck were unremarkable. She was hospitalized for stroke rule out. Hospital Course: Patient was placed under observation on the medical floor. MRI of the brain done was negative for acute stroke. Lipid profile showed markedly reduced triglyceride, total cholesterol and LDL levels. Patient is on evolocumab, high- dose Lipitor and ezetimibe. Patient advised to discuss parasitization of these medications with her PCP. UA suggested the presence of UTI. Patient is di scharged with oral cefpodoxime for UTI. She was normotensive without her multiple antihypertensives-metoprolol and losartan and suspect patient may be experiencing dizziness secondary to drug-induced hypotension. She is advised to stop taking the losartan and to continue the metoprolol for a target systolic blood pressure of around 130. She is informed she may resume the losartan if she is persistently hypertensive. Vital Signs/Physical Exam: Temp Pulse Resp BP Pulse Ox 97.6 F 67 18 162/75 H 95 06/20/23 16:00 06/20/23 16:00 06/20/23 16:00 06/20/23 16:00 06/20/23 16:00 General: Alert, In no apparent distress, Oriented x3 HEENT: Mucous membr. moist/pink Neck: Supple, JVD not distended Respiratory: Clear to auscultation bilaterally, Normal air movement Cardiovascular: No edema, Regular rate/rhythm, Normal S1 S2 Gastrointestinal: Normal bowel sounds, Soft and benign, Non-distended, No tenderness Musculoskeletal: No swelling Integumentary: No rashes, No cyanosis Neurological: Normal speech, Normal strength at 5/5 x4 extr, Cranial nerves 3-12 intact Laboratory Data at Discharge: WBC 7.80 thou/uL (4.3-10.9) 06/19/23 18:56 Hgb 14.0 g/dL (12.0-15.0) 06/19/23 18:56 Hct 41.4 % (36.0-45.0) 06/19/23 18:56 Plt Count 268 thou/uL (152-406) 06/19/23 18:56 Sodium 140 mEq/L (136-145) 06/19/23 18:56 Potassium 4.2 mEq/L (3.5-5.1) 06/19/23 18:56 BUN 13 mg/dL (7-18) 06/19/23 18:56 Creatinine 0.71 mg/dL (0.55-1.02) 06/19/23 18:56 Glucose 91 mg/dL (74-106) 06/19/23 18:56 Total Bilirubin 0.6 mg/dL (0.2-1.0) 06/19/23 18:56 AST 31 U/L (15-37) 06/19/23 18:56 ALT 40 U/L (13-56) 06/19/23 18:56 Alkaline Phosphatase 109 U/L (45-117) 06/19/23 18:56 Triglycerides 61 mg/dL (<150) 06/20/23 03:03 Cholesterol 72 mg/dL (<200) 06/20/23 03:03 HDL Cholesterol 52 mg/dL (40-60) 06/20/23 03:03 Cholesterol/HDL Ratio 1.38 06/20/23 03:03 Home Medications: Aspirin 81 mg PO DAILY 06/20/23 Cefpodoxime Proxetil 100 mg PO BID #6 tab 06/20/23 Clopidogrel Bisulfate [Plavix*] 75 mg PO DAILY 06/20/23 Famotidine 40 mg PO DAILY 06/20/23 Fluticasone Propionate [Flonase Allergy Relief] 9.9 ml NS DAILY 06/20/23 Insulin Glargine,Hum.rec.anlog [Deni Solostkristi] 20 units SQ DAILY 06/20/23 Metoprolol Succinate 25 mg PO DAILY 06/20/23 Nitroglycerin [Nitrostat*] 0.4 mg SL PRN PRN 06/20/23 Oxybutynin Chloride [Oxybutynin Chloride ER] 15 mg PO DAILY 06/20/23 Semaglutide [Ozempic] 2 mg SQ SEECOM 06/20/23 New Medications: Cefpodoxime Proxetil 100 mg PO BID #6 tab Diet: ADA Activity: Fall precautions Followup: Sandra Lind MD [Primary Care Provider] - 1-2 Weeks Time spent managing pt's care (in minutes): 29
[2023-06-20] MEDS ORDERED: ATORVASTATIN 20 MG TAB PO SCH (21:00)
--- NOTE | 2023-06-21 07:07 | ECHO ---
HEIGHT: 5 ft 5 in WEIGHT: 160 lb 0 oz DATE OF STUDY: 06/20/[address]: Guilherme Alexis MD 2-DIMENSIONAL: YES M.MODE: YES DOPPLER: YES COLOR FLOW: YES TDS: PORTABLE: YES DEFINITY: BUBBLE STUDY: DIAGNOSIS: STROKE CARDIAC HISTORY: CATHERIZATION: YES SURGERY: NO PROSTHETIC VALVE: NO PACEMAKER: NO MEASUREMENTS (cm) DIASTOLIC (NORMALS) SYSTOLIC (NORMALS) IVSd 1.3 (0.6-1.2) LA Diam 2.7 (1.9-4.0) LVEF 64% LVIDd 4.2 (3.5-5.7) LVIDs 2.8 (2.0-3.5) %FS 35% LVPWd 1.4 (0.6-1.2) Ao Diam 2.8 (2.0-3.7) 2 DIMENSIONAL ASSESSMENT: RIGHT ATRIUM: NORMAL LEFT ATRIUM: NORMAL RIGHT VENTRICLE: NORMAL LEFT VENTRICLE: NORMAL TRICUSPID VALVE: NORMAL MITRAL VALVE: MILD MITRAL REGURGITATION PULMONIC VALVE: NORMAL AORTIC VALVE: NORMAL PERICARDIAL EFFUSION: NONE AORTIC ROOT: NORMAL LEFT VENTRICULAR WALL MOTION: NORMAL DOPPLER/COLOR FLOW: MILD MITRAL REGURGITATION COMMENTS: 1. NORMAL LEFT VENTRICULAR EJECTION FRACTION 60-65% 2. NORMAL WALL MOTION 3. GRADE I DIASTOLIC DYSFUNCTION 4. MILD MITRAL REGURGITATION TECHNOLOGIST: NAOMI BORREGO
--- NOTE | 2023-06-21 13:26 | EKG ---
Test Date: 2023-06-19 Test Time: 18:36:41 Enamel Sprayer: SVETA MEASUREMENT RESULTS: Intervals: Rate: 60 MA: 172 QRSD: 136 QT: 440 QTc: 440 [place]: P: 56 MA: 172 QRS: -13 T: 92 INTERPRETIVE STATEMENTS: Normal sinus rhythm Left bundle branch block Abnormal ECG No previous ECG available for comparison Electronically Signed On 06-21-23 13:22:03 SUPERVISOR FABRICATION by Eliazar Joseph
== END 2023-06-20 18:25 | disposition home or self-care (01) ==
LOC: ER 17:43 → ERHOLD 21:41 → 2ND 06-20 15:24
PROVIDERS: ADMIT Family Medicine; ATTEND Internal Medicine
DX: R42 Dizziness and giddiness (principal); N30.00 Acute cystitis without hematuria; I25.10 Atherosclerotic heart disease of native coronary artery without angina pectoris; E11.9 Type 2 diabetes mellitus without complications; I10 Essential (primary) hypertension; E78.5 Hyperlipidemia, unspecified; H53.2 Diplopia; R26.81 Unsteadiness on feet
CPT/HCPCS: 93005; 93306; 87088; 85025; 81001; 87086; 36415; 80061; 82947 ×3; 84484; 80053; 70450; 70496; 70498; 70551; 92610; 97116; 97161; 97530; Q9967; J1650; J0696 ×2; G0378

== ENCOUNTER → 2023-07-17 | Day surgery (SDC) | payer OTHER ==
--- NOTE | 2023-07-17 11:05 | RAD REPORT ---
EXAM DESCRIPTION: - FINE NEEDLE ASPIRATION 2ND LES - 07/17/2023 10:34 am CLINICAL HISTORY: BILATERAL LESIONS COMPARISON: No comparisons FINDINGS: Preoperative diagnosis: Bilateral thyroid nodules. Post operative diagnosis: Same. Conscious Sedation: None Fluoroscopy time: None Contrast used: None Estimated blood loss: Minimal Specimens:4 x FNA of the previously reported TR 4 lesion in the right lobe. 4 x FNA of the previously reported TR 4 lesion in the lower pole of the left thyroid lobe. Performed with 25 gauge needle. IMPRESSION: Technically successful ultrasound-guided bilateral thyroid nodule fine-needle aspiration .
--- NOTE | 2023-07-17 11:05 | RAD REPORT ---
EXAM DESCRIPTION: US - Guided FNA Non Breast - 07/17/2023 10:34 am CLINICAL HISTORY: E04.1 COMPARISON: No comparisons FINDINGS: Preoperative diagnosis: Bilateral thyroid nodules. Post operative diagnosis: Same. Conscious Sedation: None Fluoroscopy time: None Contrast used: None Estimated blood loss: Minimal Specimens:4 x FNA of the previously reported TR 4 lesion in the right lobe. 4 x FNA of the previously reported TR 4 lesion in the lower pole of the left thyroid lobe. Performed with 25 gauge needle. IMPRESSION: Technically successful ultrasound-guided bilateral thyroid nodule fine-needle aspiration .
== END ==
LOC: FNA 09:19
PROVIDERS: ATTEND Family Medicine
DX: E04.1 Nontoxic single thyroid nodule (principal)
CPT/HCPCS: 10006; 88304; 88305

== ENCOUNTER → 2024-05-19 | Day surgery (SDC) | payer OTHER ==
--- NOTE | 2024-05-19 11:30 | RAD REPORT ---
Exam:Breast Core BX w/US Guidance CLINICAL HISTORY: Right breast mass N63.12 TECHNIQUE: The risks, benefits and alternatives to procedure were explained to the patient and informed consent obtained. Prior ultrasound was reviewed. Skin and deeper tissues were anesthetized with lidocaine. Under sonographic guidance two 14-gauge vacuum-assisted core biopsies of the right breast mass were o btained. The specimens were given to pathology. Subsequently a localizing clip was placed into the mass. Pressure was applied to the biopsy site. Patient experienced immediate complication. IMPRESSION: Core biopsies of the right breast mass
== END ==
LOC: DS 09:03
PROVIDERS: ATTEND Surgery
DX: C50.911 Malignant neoplasm of unspecified site of right female breast (principal)
CPT/HCPCS: 19083; 88305